=== PATIENT | female | born 1950 ===

== ENCOUNTER 2018-01-14 13:13 | Inpatient (IN) | payer OTHER ==
[~2018-01-14] VITALS: Ht 162.6 cm; Wt 90.4 kg
[~2018-01-14 13:13] MED LIST: ACET325 PO; ASPI81CH PO; ATOR80 PO; CLOT10 SS; ELIQUIS5 MG PO; Fish Oil 10001000 MG PO; HYDCHL12.5 PO; Hydrocodone-Ap1 EA23 PO; IBUP400 PO; LISI20 PO; METO25; Norco 5-325 Ta1 EACH PO; Pantoprazole So40 MG PO
[2018-01-14 14:00] LABS: BASOPHILS ABSOLUTE AUTO 0.06 K/mm3 (0.00-0.23); BASOPHILS PERCENT AUTO 1 % (0-2); EOSINOPHILS ABSOLUTE AUTO 0.28 K/mm3 (0.00-0.68); EOSINOPHILS PERCENT AUTO 3 % (0-6); Hematocrit 27.7 % (33.0-51.0); Hemoglobin 8.3 g/dL (11.5-16.0); IMMATURE GRAN ABSOLUTE AUTO 0.03 K/mm3 (0.00-0.10); IMMATURE GRAN PERCENT AUTO 0 % (0-1); LYMPHOCYTES PERCENT AUTO 21 % (21-46); MONOCYTES ABSOLUTE AUTO 0.86 K/mm3 (0.16-1.47); MONOCYTES PERCENT AUTO 8 % (4-13); Mean Corpuscular HGB 23.8 pg (26.0-34.0); Mean Corpuscular Volume 79 fL (80-100); Mean Platelet Volume 10.5 fL (9.1-12.4); NEUTROPHILS ABSOLUTE AUTO 7.44 K/mm3 (1.96-9.15); NEUTROPHILS PERCENT AUTO 68 % (41-73); Platelet Count 378 K/mm3 (150-400); RDW Coefficient Variation 15.7 % (11.7-14.2); RDW Standard Deviation 45.1 fL (35.1-46.3); Red Blood Cell Count 3.49 M/mm3 (3.80-5.20); White Blood Cell Count 10.97 K/mm3 (4.00-11.30)
[2018-01-14 14:20] LABS: Alanine Aminotransfer (ALT/SGP 23 U/L (12-78); Albumin, Blood 3.4 g/dL (3.4-5.0); Albumin/Globulin Ratio 0.9 (0.8-1.8); Alk Phos 146 U/L (50-136); Anion Gap 9 mmol/L (6-16); Aspartate Aminotrans (AST/SGOT 20 U/L (12-37); Bilirubin, Total 0.2 mg/dL (0.1-1.0); Blood Urea Nitrogen 13 mg/dL (8-24); Bun/Creatinine Ratio 12.7 (12.0-20.0); CO2, Blood 23 mmol/L (21-32); Calcium, Blood 8.4 mg/dL (8.5-10.1); Chloride, Blood 109 mmol/L (98-108); Creatinine, Blood 1.02 mg/dL (0.40-1.00); Globulin, Blood 3.9 g/dL (2.2-4.0); Glomerular Filtration Rate 58 (60-); Glucose, Blood 124 mg/dL (70-99); Potassium, Blood 3.5 mmol/L (3.5-5.5); Sodium, Blood 141 mmol/L (136-145); Total Protein, Blood 7.3 g/dL (6.4-8.2); Troponin I <0.015 ng/mL (0.000-0.040)
[2018-01-14 15:11] LABS: Source, Urine Clean Catch
[2018-01-14 15:19] LABS: Bilirubin, Urine Neg (Neg); Blood, Urine 3+ (Neg); Glucose Qualitative, Urine Neg (Neg); Ketones, Urine Neg (Neg); Leukocyte Esterase, Urine 3+ (Neg); Nitrite, Urine Neg (Neg); Protein, Urine 2+ (Neg); Specific Gravity, Urine 1.015 (1.003-1.022); Urobilinogen, Urine NORM (Normal)
[2018-01-14 15:50] LABS: Appearance, Urine Cloudy (Clear); Color, Urine Yellow (P-Yellow); White Blood Cells, Urine 50-100 /hpf (0-5)
[2018-01-14 15:51] LABS: Bacteria Many /hpf; Squamous Epithelial Cells Many /hpf (Few)
[2018-01-14 19:02] LABS: Hemoglobin 8.6 g/dL (11.5-16.0)
[2018-01-14] MEDS ORDERED: DILT180ER PO (21:23)
[2018-01-14] MEDS ORDERED: BENADRYL25 MG PO (21:24)
[2018-01-15 01:03] LABS: Hematocrit 25.1 % (33.0-51.0); Hemoglobin 7.3 g/dL (11.5-16.0)
[2018-01-15 06:57] LABS: Hematocrit 24.8 % (33.0-51.0); Hemoglobin 7.5 g/dL (11.5-16.0)
[2018-01-16 09:27] LABS: Hematocrit 26.6 % (33.0-51.0); Hemoglobin 7.6 g/dL (11.5-16.0); Mean Corpuscular HGB 23.1 pg (26.0-34.0); Mean Corpuscular HGB Conc 28.6 g/dL (31.5-36.5); Mean Corpuscular Volume 81 fL (80-100); Mean Platelet Volume 11.4 fL (9.1-12.4); Platelet Count 349 K/mm3 (150-400); RDW Coefficient Variation 15.9 % (11.7-14.2); RDW Standard Deviation 46.3 fL (35.1-46.3); Red Blood Cell Count 3.29 M/mm3 (3.80-5.20); White Blood Cell Count 9.44 K/mm3 (4.00-11.30)
[2018-01-16] MEDS ORDERED: Ferrous Sulfat325 M2 PO (12:34)
[2018-01-17 10:12] LABS: HBSAG SCREEN Negative (Negative); HEP B CORE AB, TOT Negative (Negative); HEP C VIRUS AB >11.0 (0.0-0.9)
== END 2018-01-16 14:00 | disposition home or self-care (01) | DRG 378 ==
LOC: ER 13:13 → PCU 16:11
PROVIDERS: Emergency Medicine; Internal Medicine; Internal Medicine Gastroenterology
PROC: 0W3P8ZZ Control Bleeding in Gastrointestinal Tract, Via Natural or Artificial Opening Endoscopic (ICD-10-PCS; principal; 2018-01-16 08:15)
DX: K29.81 Duodenitis with bleeding (principal); D62 Acute posthemorrhagic anemia; K44.9 Diaphragmatic hernia without obstruction or gangrene; K25.9 Gastric ulcer, unspecified as acute or chronic, without hemorrhage or perforation; T39.315A Adverse effect of propionic acid derivatives, initial encounter; K21.9 Gastro-esophageal reflux disease without esophagitis; I48.0 Paroxysmal atrial fibrillation; I10 Essential (primary) hypertension; I25.10 Atherosclerotic heart disease of native coronary artery without angina pectoris; Z86.73 Personal history of transient ischemic attack (TIA), and cerebral infarction without residual deficits
CPT/HCPCS: 36415; 80053; 81001; 82272; 84484; 85014; 85018; 85025; 85027; 86317; 86704; 86708; 86803; 87086; 87340; 93005; 93010; 96365; 96376; 99285-25; C9113; J2250; J2405; J7120